=== PATIENT | female | born 1955 | race African-American/Black ===

== ENCOUNTER 2016-07-04 23:25 | Inpatient (IN) | payer MEDICAID ==
[~2016-07-04] VITALS: Ht 167.6 cm; Wt 102.1 kg
[~2016-07-04 23:25] MED LIST: ASPIRIN325 MG PO; CELEXA20 MG PO; COREG 3.1253.125 MG GT; FERROUS SULFAT325 MG PO; GLUCAGON1 MG/KIT IM; GLUCAGON1 MG/KIT SQ; HUMALOG 30100 UNITS/; HUMALOG 30100 UNITS/ SC; INSTA-GLUCOSE31 GM; LANTUS INSULIN10 ML; LANTUS SOL100 UNIT/1 SC; LANTUS SOL100 UNIT/1 SQ; LEVAQUIN750 MG PO; LIPITOR10 MG PO; LISINOPRIL10 MG PO; LISINOPRIL5 MG PO; PERCOCET 10/3251 TA1 OR; SEROQUEL XR200 MG PO; SOMA250 MG; SOMA250 MG PO
[2016-07-05 00:25] LABS: HEMATOCRIT 29.6 % (36.0-48.0); HEMOGLOBIN 9.3 g/dL (12-16); LYMPHOCYTES 40.5 % (15-50); MCH 22.9 pg (26.0-34.0); MCHC 31.4 g/dL (31.0-37.0); MCV 72.9 fL (80.0-100.0); MEAN PLATELET VOLUME 10.4 fL (7.4-10.4); NEUTROPHILS 50.6 % (40-80); PLATELET COUNT 134 10x3/uL (130-400); RBC 4.06 10x6/uL (4.00-5.40); RDW 20.2 % (11.5-14.5)
[2016-07-05 00:40] LABS: ALBUMIN 2.9 g/dL (3.4-5.0); ANION GAP 11.3 mmol/L (8-16); BILIRUBIN - TOTAL 0.39 mg/dL (0.2-1.3); CALCIUM 8.8 mg/dL (8.5-10.1); CARBON DIOXIDE 29.8 mmol/L (21.0-32.0); CREATININE - SERUM 1.5 mg/dL (0.6-1.3); POTASSIUM - SERUM 4.1 mmol/L (3.5-5.1); PROTEIN - SERUM 7.4 g/dL (6.4-8.2)
--- NOTE | 2016-07-05 03:30 | NUR ---
RECIEVED PT FROM ER VIA STRETCHER, ASSESSMENT COMPLETED, BRIEF SATURATED WITH URINE, FECES (NEW AND DRIED) PRESENT, HARDENED PIECE OF MEPILEX ROLLED UP ON COCCYX, STG 2 PRESSURE ULCER TO COCCYC APPROXIMATE 1/2 DOLLAR SIZE WITH MACERATION AROUND IT, UNSTAGEABLE ULCER TO R HEEL WITH ESCHAR, ALL AREAS CLEANSED AND CLEAN GOWN APPLIED, FELICIA WELL, ORIENTED TO ROOM AND CL LIGHT, SR'S UP X2, CL IN REACH, WILL MONITOR
[2016-07-05] MEDS ORDERED: LANTUS INSULIN10 ML SC (04:57)
[2016-07-05] MEDS ORDERED: ARGININE1 GM PO (04:58)
[2016-07-05] MEDS ORDERED: ASCORBIC ACID500 MG PO (04:58)
[2016-07-05] MEDS ORDERED: SEROQUEL100 MG PO (04:59)
[2016-07-05] MEDS ORDERED: THEREMS-M1 TAB PO (04:59)
[2016-07-05] MEDS ORDERED: GLUCOPHAGE500 MG PO (05:00)
[2016-07-05] MEDS ORDERED: LIPITOR10 MG PO (05:00)
[2016-07-05] MEDS ORDERED: ACETAMINOPHEN325 MG PO (05:02)
[2016-07-05] MEDS ORDERED: NEURONTIN 300300 MG PO (05:04)
[2016-07-05] MEDS ORDERED: VITAMIN D5000 UNIT PO (05:04)
[2016-07-05 05:12] VITALS: BP 134/65; BMI 36.4
[2016-07-05 08:02] VITALS: BP 163/69
[2016-07-05] MEDS ORDERED: HUMULIN R100 U/ML (08:18)
[2016-07-05] MEDS ORDERED: HUMULIN R100 U/ML SC ×2 (08:24→08:40)
--- NOTE | 2016-07-05 08:54 | NUR ---
AWAKE AND ALERT. ORIENTED X3. NO C/O AT THIS TIME. LUNGS HAVE FAINT CRACKLES THROUGOUT LUNG MCBRIDE, PRODUCTIVE COUGH NOTED. SKIN IS INTACT EXCEPT WOUND TO RIGHT HEEL WHICH IS SCABBED OVER AND STAGE 2 TO BUTTOCKS WHICH HAS A DRY INTACT MEPELEX IN PLACE. IV TO LEFT FOREARM IS PATENT WITHOUT REDNESS AT INSERTION SITE. ATE BREAKFAST PER SELF. DENIES NEEDS.
--- NOTE | 2016-07-05 09:15 | NUR ---
REFUSED BP MEDS THIS AM BUT CHANGED HER MIND AND TOOK THEM.
--- NOTE | 2016-07-05 12:15 | NUR ---
LUNCH SERVED IN ROOM. FEEDS SELF WITH SET UP ASSISTANCE.
[2016-07-05 12:22] VITALS: BP 165/71
[2016-07-05 13:11] VITALS: Ht 167.6 cm; Wt 102.1 kg
[2016-07-05 16:14] VITALS: BP 185/75
--- NOTE | 2016-07-05 17:00 | NUR ---
FSBS 450. DR QUIROGA NOTIFIED OF SAME. NEW ORDERS RECEIVED. GIVEN 28 UNITS HUMALOG SUBQ PER ORDERS. SUPPER SERVED IN ROOM.
--- NOTE | 2016-07-05 18:00 | NUR ---
ATE ALL OF SUPPER. GIVEN 10 UNITS OF LANTUS SUBQ PER ORDERS. WILL CONTINUE TO MONITOR.
[2016-07-05 20:00] VITALS: BP 163/62
--- NOTE | 2016-07-05 20:11 | NUR ---
BROUGHT PATIENT WATER PER HER REQUEST. PATIENT RESTING IN BED AND DENIES OTHER NEEDS AT THIS TIME. CALL LIGHT WITHIN REACH AND BED IN LOWEST POSITION.
[2016-07-06 03:00] VITALS: BP 162/68
[2016-07-06 05:46] LABS: BASOPHILS 0.3 % (0.0-2.0); EOSINOPHILS 3.5 % (0-7); HEMATOCRIT 30.9 % (36.0-48.0); HEMOGLOBIN 9.6 g/dL (12-16); IMMATURE GRANULOCYTES 0.3 % (0-5); LYMPHOCYTES 34.8 % (15-50); MCH 22.5 pg (26.0-34.0); MCHC 31.1 g/dL (31.0-37.0); MCV 72.4 fL (80.0-100.0); MEAN PLATELET VOLUME 10.8 fL (7.4-10.4); NEUTROPHILS 53.1 % (40-80); PLATELET COUNT 146 10x3/uL (130-400); RBC 4.27 10x6/uL (4.00-5.40); RDW 19.7 % (11.5-14.5); WBC 6.9 10x3/uL (4.8-10.8)
[2016-07-06 06:03] LABS: ALBUMIN 3.1 g/dL (3.4-5.0); ANION GAP 11.3 mmol/L (8-16); BILIRUBIN - TOTAL 0.42 mg/dL (0.2-1.3); CALCIUM 9.3 mg/dL (8.5-10.1); CARBON DIOXIDE 31.4 mmol/L (21.0-32.0); CREATININE - SERUM 1.6 mg/dL (0.6-1.3); POTASSIUM - SERUM 3.7 mmol/L (3.5-5.1); PROTEIN - SERUM 7.8 g/dL (6.4-8.2)
--- NOTE | 2016-07-06 07:45 | NUR ---
AWAKE AND ALERT. ORIENTED TO SELF. RESPONDS TO YES/NO QUESTIONS. PATIENT IS NON VERBAL SO DIFFICULT TO ASSESS ORIENTATION. LUNGS ARE CLEAR BIALTERALLY, OCCASSIONALLY PRODUCTIVE COUGH NOTED WITH GRAYISH SPUTUM. SKIN IS INTACT WITHOUT REDNESS EXCEPT STAGE 2 TO COCCYX AND BLACKENED AREA TO RIGHT HEEL, THE SCABBED AREA APPEARS TO HAVE COME OFF IN THE PM. SL TO LEFT HAND IS PATENT WITHOUT REDNESS AT INSERTION SITE. DENIES NEEDS.
[2016-07-06 07:51] VITALS: BP 148/60
[2016-07-06 12:26] VITALS: BP 169/75
[2016-07-06 16:09] VITALS: BP 173/68
--- NOTE | 2016-07-06 16:41 | NUR ---
Patient Name: MEGAN NAIK Admission Status: ER Accout number: [id number] Admission Date: 07-05-2016 : 1955 Admission Diagnosis:HEART FAILURE, UNSPECIFIED Attending: ISAURA Current LOS: 1 Anticipated DC Date: 07-07-2016 Planned Disposition: Nursing Facility [facility] Primary Insurance: MEDICAID [place] Discharge Planning Comments: CM CALLED [facility] FOR INFORMATION REGARDING PATIENT. PATIENT IS TOTALLY DEPENDENT AND USUALLY IS IN A DEVAN CHAIR. PATIENTS PCP IS DR. BUCK AMADOR AND IN HOUSE PHARMACY AT [facility]. PATIENT COULD POSSIBLY DISCHARGE TOMORROW. CM WILL CONTINUE TO FOLLOW PATIENT WITH D/C NEEDS AND PLANS. PCP DR. BUCK AMADOR IN HOUSE AT [facility] ISELA SANCHEZ (DAUGHTER) [phone] Eyeglass Lens Generator: [facility] IN HOUSE 0 * Preadmission Environment [facility] Nursery Assistant Custodial 0 * Facility Name [facility] 0 * ADLs Total Dependent 0 * Equipment Other 0 * Other Equipment DEVAN CHAIR 0 * List name and contact numbers for known caregivers / representatives who currently or will assist patient after discharge: ISELA SANCHEZ (DAUGHTER) [phone] 0 * Community resources currently utilized None 0 * Additional services required to return to the preadmission environment? Yes 0 * Can the patient safely return to the preadmission environment? Yes 0 * Has this patient been hospitalized within the prior 30 days at any hospital? No 0 Grand Total: 0
--- NOTE | 2016-07-06 17:18 | NUR ---
FSBS 516. SPOKE WITH DR. QUIROGA. ORDERS RECEIVED. GIVEN 38 UNITS REGULAR SUB Q PER ORDERS.
--- NOTE | 2016-07-06 18:32 | NUR ---
ATE MOST OF SUPPER. DENIES NEEDS. NO CHANGES NOTED.
[2016-07-06 19:00] VITALS: BP 142/45
--- NOTE | 2016-07-06 19:30 | NUR ---
LYING IN BED RESTING WITH EYES CLOSED, RESP WITH EASE, NC IN PLACE, ASSESSMENT COMPLETED, MEPILEX TO COCCYX CDI, NO DISTRESS NOTED, FALL PRECAUTIONS IN PLACE, CL IN REACH, DOOR OPEN FOR EASY VIEWING
--- NOTE | 2016-07-06 21:12 | NUR ---
MEDS PER MAR, FELICIA WELL, FALL PRECAUTIONS IN PLACE, CL IN REACH
--- NOTE | 2016-07-06 23:40 | NUR ---
RESTING WITH EYES CLOSED, RESP WITH EASE, NO DISTRESS NOTED, SAFETY PRECAUTIONS IN PLACE, WILL MONITOR
[2016-07-07 04:00] VITALS: BP 147/65
[2016-07-07 05:48] LABS: BASOPHILS 0.5 % (0.0-2.0); HEMATOCRIT 31.4 % (36.0-48.0); HEMOGLOBIN 9.9 g/dL (12-16); IMMATURE GRANULOCYTES 0.2 % (0-5); LYMPHOCYTES 34.7 % (15-50); MCH 22.8 pg (26.0-34.0); MCHC 31.5 g/dL (31.0-37.0); MCV 72.4 fL (80.0-100.0); MEAN PLATELET VOLUME 11.3 fL (7.4-10.4); MONOCYTES 7.6 % (2-11); PLATELET COUNT 161 10x3/uL (130-400); RBC 4.34 10x6/uL (4.00-5.40); RDW 19.2 % (11.5-14.5); WBC 6.4 10x3/uL (4.8-10.8)
[2016-07-07 06:14] LABS: ANION GAP 10.7 mmol/L (8-16); BILIRUBIN - TOTAL 0.4 mg/dL (0.2-1.3); CALCIUM 9.2 mg/dL (8.5-10.1); CREATININE - SERUM 1.6 mg/dL (0.6-1.3); POTASSIUM - SERUM 3.7 mmol/L (3.5-5.1); PROTEIN - SERUM 7.8 g/dL (6.4-8.2)
--- NOTE | 2016-07-07 07:00 | NUR ---
REPORT RECIEVED ASSUMED CARE. PATIENT IN BED WITH NO COMPLAINTS AT THIS TIME. IV INTACT. CALL LIGHT WITHIN REACH.
[2016-07-07 08:12] VITALS: BP 158/64
[2016-07-07] MEDS ORDERED: OMNICEF300 MG PO (08:28)
--- NOTE | 2016-07-07 08:30 | NUR ---
ASSESSMENT COMPLETE, VS STABLE. IV INTACT. NO COMPLAINTS. BSCDS ON AND WORKING. CREAM TO BUTTOCKS AND HEEL. HEELS RAISED ON PILLOW. LAYING ON SIDE WITH CALL LIGHT WITHIN REACH.
--- NOTE | 2016-07-07 12:00 | NUR ---
PATIENT SITTING UP IN BED EATING AT THIS TIME. IV INTACT. SCHOOL LIBRARY MEDIA PROGRAM DIRECTOR AT BEDSIDE. CALL LIGHT WITHIN REACH.
--- NOTE | 2016-07-07 15:30 | NUR ---
PATIENT IN BED LAYING ON BACK WITH NO COMPLAINTS AT THIS TIME. IV INTACT. CALL LIGHT WITHIN REACH.
--- NOTE | 2016-07-07 16:00 | NUR ---
REPORT CALLED TO VASHTI AT [facility].
--- NOTE | 2016-07-07 17:00 | NUR ---
PATIENT CHANGED AND DISCHARGE PAPERS GIVEN TO EMT. PATIENT ASSISTED TO STRECHER X 3. IV REMOVED WITH CATH TIP INTACT. PATIENT ESCORTED DOWN TO AMBULANCE WITH PERSONAL BELONGINGS BY GLASS MECHANIC.
--- NOTE | 2016-07-07 20:34 | NUR ---
Late Entry 1000 CM spoke w/ primary nurse after receiving TC from director community health nursing regarding discharge back to facility. CM advised primary to call and give [facility] to give report and give notice regarding transportation. CM came to unit 1040. Called [facility] and spoke with Bernarda. Advised patient would be returning. Provided primary nurse, Nhung, contact phone number and nurse's name, Bernarda, to call report. CM provided PCS form for ambulance transportation. 1500 Received TC from primary nurse, Nhung. "What about this patient is she going back today or what". Reminded Nhung, she had the phone number and nurse contact from this AM. PCS form was also with her work sheet and the information. Patient discharged via ambulance this late pm.
[2016-07-08] MEDS ORDERED: INSTA-GLUCOSE31 G1 PO (09:56)
== END 2016-07-07 18:11 | DRG 292 ==
LOC: D.ER 23:25 → D.MS 07-05 00:48
PROVIDERS: Emergency Medicine; ADMIT Family Medicine
DX: I11.0 Hypertensive heart disease with heart failure (principal); J44.1 Chronic obstructive pulmonary disease with (acute) exacerbation; I50.9 Heart failure, unspecified; J20.9 Acute bronchitis, unspecified; D64.9 Anemia, unspecified; E11.65 Type 2 diabetes mellitus with hyperglycemia; E11.40 Type 2 diabetes mellitus with diabetic neuropathy, unspecified; L89.152 Pressure ulcer of sacral region, stage 2; I69.320 Aphasia following cerebral infarction; Z79.4 Long term (current) use of insulin

== ENCOUNTER 2016-08-14 16:31 | Emergency (ER) | payer MEDICAID ==
[2016-07-05 13:11] VITALS: BMI 36.3
[~2016-08-14 16:31] MED LIST changes: +ACETAMINOPHEN325 MG PO; +ARGININE1 GM PO; +ASCORBIC ACID500 MG PO; +GLUCOPHAGE500 MG PO; +HUMULIN R100 U/ML; +HUMULIN R100 U/ML SC; +INSTA-GLUCOSE31 G1 PO; +LANTUS INSULIN10 ML SC; +NEURONTIN 300300 MG PO; +OMNICEF300 MG PO; +SEROQUEL100 MG PO; +THEREMS-M1 TAB PO; +VITAMIN D5000 UNIT PO
[2016-08-14 18:32] LABS: BASOPHILS 0.3 % (0.0-2.0); HEMATOCRIT 32.9 % (36.0-48.0); HEMOGLOBIN 10.3 g/dL (12-16); IMMATURE GRANULOCYTES 0.1 % (0-5); LYMPHOCYTES 38.6 % (15-50); MCH 22.7 pg (26.0-34.0); MCHC 31.3 g/dL (31.0-37.0); MCV 72.6 fL (80.0-100.0); MEAN PLATELET VOLUME 10.6 fL (7.4-10.4); MONOCYTES 6.9 % (2-11); NEUTROPHILS 51.1 % (40-80); PLATELET COUNT 154 10x3/uL (130-400); RBC 4.53 10x6/uL (4.00-5.40); RDW 19.3 % (11.5-14.5); WBC 6.9 10x3/uL (4.8-10.8)
[2016-08-14 19:38] LABS: ALBUMIN 3.3 g/dL (3.4-5.0); ANION GAP 12.6 mmol/L (8-16); BILIRUBIN - TOTAL 0.41 mg/dL (0.2-1.3); CALCIUM 9.3 mg/dL (8.5-10.1); CARBON DIOXIDE 28.3 mmol/L (21.0-32.0); CREATININE - SERUM 1.1 mg/dL (0.6-1.3); POTASSIUM - SERUM 3.9 mmol/L (3.5-5.1); PROTEIN - SERUM 7.6 g/dL (6.4-8.2)
== END 2016-08-14 20:27 | disposition home or self-care (01) ==
LOC: D.ER 16:31
PROVIDERS: Emergency Medicine
DX: R22.42 Localized swelling, mass and lump, left lower limb (principal); I10 Essential (primary) hypertension; E78.5 Hyperlipidemia, unspecified; E11.9 Type 2 diabetes mellitus without complications; Z79.4 Long term (current) use of insulin; Z86.73 Personal history of transient ischemic attack (TIA), and cerebral infarction without residual deficits

== ENCOUNTER 2016-09-21 18:41 | Inpatient (IN) | payer MEDICAID ==
[~2016-09-21] VITALS: Ht 167.6 cm; Wt 104.1 kg
[~2016-09-21 18:41] MED LIST changes: +COREG 3.1253.125 MG PO; -HUMULIN R100 U/ML; -HUMULIN R100 U/ML SC; -LANTUS INSULIN10 ML SC
[2016-09-21 19:19] LABS: HEMOGLOBIN 10.4 g/dL (12-16); MCHC 31.5 g/dL (31.0-37.0); MEAN PLATELET VOLUME 10.8 fL (7.4-10.4); RBC 4.52 10x6/uL (4.00-5.40); RDW 18.6 % (11.5-14.5); WBC 8.3 10x3/uL (4.8-10.8)
[2016-09-21 19:31] LABS: PLATELET COUNT 189 10x3/uL (130-400)
[2016-09-21 19:34] LABS: ALBUMIN 2.9 g/dL (3.4-5.0); ALKALINE PHOSPHATASE 137 U/L (46-116); ALT (SGPT) 68 U/L (10-68); CALC OSMOLALITY 286 mosm/kg (275-300); CALCIUM 9.6 mg/dL (8.5-10.1); CARBON DIOXIDE 29.3 mmol/L (21.0-32.0); CHLORIDE - SERUM 104 mmol/L (98-107); CREATININE - SERUM 1.6 mg/dL (0.6-1.3); POTASSIUM - SERUM 3.6 mmol/L (3.5-5.1); PROTEIN - SERUM 7.4 g/dL (6.4-8.2); SODIUM 140 mmol/L (136-145); UREA NITROGEN 21 mg/dL (7-18); eGFR NON AFRICAN AMERICAN 35 mL/min (90-120)
[2016-09-21 19:37] LABS: GLUCOSE 189 mg/dL (74-106)
[2016-09-21 19:43] LABS: THYROID STIMULATING HORMONE 2.87 uIU/mL (0.36-3.74)
[2016-09-21 19:47] LABS: KETONE - SERUM NEGATIVE (NEGATIVE)
[2016-09-21 19:55] LABS: EOSINOPHILS 2 % (0-7); LYMPHOCYTES 51 % (15-50); MONOCYTES 6 % (2-11); NEUTROPHILS 41 % (40-80); PLATELET ESTIMATE NORMAL
[2016-09-21 20:33] LABS: UDS - AMPHET NEGATIVE QUAL (NEGATIVE); UDS - BARB NEGATIVE QUAL (NEGATIVE); UDS - BENZO NEGATIVE QUAL (NEGATIVE); UDS - COCAINE NEGATIVE QUAL (NEGATIVE); UDS - METH NEGATIVE QUAL (NEGATIVE); UDS - OPIATE NEGATIVE QUAL (NEGATIVE); UDS - PCP NEGATIVE QUAL (NEGATIVE); UDS - THC NEGATIVE QUAL (NEGATIVE)
[2016-09-21 20:44] LABS: APPEARANCE CLEAR (CLEAR); BILIRUBIN NEGATIVE (NEGATIVE); COLOR YELLOW (YELLOW); GLUCOSE 100 mg/dL (NEGATIVE); KETONE NEGATIVE (NEGATIVE); LEUKOCYTE ESTERASE 1+ (NEGATIVE); NITRITE NEGATIVE (NEGATIVE); PROTEIN 1+ mg/dL (NEGATIVE); SPECIFIC GRAVITY 1.015 (1.005-1.020); UROBILINOGEN NORMAL (NORMAL)
[2016-09-21 20:45] LABS: BACTERIA MODERATE /hpf (NONE SEEN); EPITHELIAL CELLS 0-5 /hpf (0-5); RED CELLS - URINE 0-5 /hpf (0-5); WHITE CELLS - URINE >50 /hpf (0-5)
[2016-09-21 22:58] VITALS: BP 135/58; BMI 36.4
[2016-09-22 04:38] LABS: BASOPHILS 0.2 % (0-2); EOSINOPHILS 2.2 % (0-7); HEMATOCRIT 32.7 % (36.0-48.0); IMMATURE GRANULOCYTES 0.5 % (0-5); LYMPHOCYTES 40.5 % (15-50); MCH 22.5 pg (26.0-34.0); MCHC 30.6 g/dL (31.0-37.0); MCV 73.6 fL (80.0-100.0); MEAN PLATELET VOLUME 10.5 fL (7.4-10.4); MONOCYTES 7.2 % (2-11); NEUTROPHILS 49.4 % (40-80); PLATELET COUNT 163 10x3/uL (130-400); RBC 4.44 10x6/uL (4.00-5.40); RDW 18.5 % (11.5-14.5); WBC 8.3 10x3/uL (4.8-10.8)
[2016-09-22 05:00] LABS: ANION GAP 7.5 mmol/L (8-16); CALCIUM 9.1 mg/dL (8.5-10.1); CARBON DIOXIDE 31.2 mmol/L (21.0-32.0); CREATININE - SERUM 1.7 mg/dL (0.6-1.3); POTASSIUM - SERUM 3.7 mmol/L (3.5-5.1)
[2016-09-22 06:06] VITALS: BP 124/70
[2016-09-22 08:00] VITALS: BP 139/64
[2016-09-22 10:51] VITALS: Ht 167.6 cm; Wt 104.1 kg
[2016-09-22 12:00] VITALS: BP 157/67
[2016-09-22 16:00] VITALS: BP 149/68
[2016-09-22 19:00] VITALS: BP 144/56
[2016-09-23] VITALS: BP 187/74
[2016-09-23 04:23] VITALS: BP 196/74
[2016-09-23 05:38] LABS: BASOPHILS 0.3 % (0-2); EOSINOPHILS 2.7 % (0-7); HEMATOCRIT 30.3 % (36.0-48.0); HEMOGLOBIN 9.4 g/dL (12-16); LYMPHOCYTES 36.3 % (15-50); MCH 23.1 pg (26.0-34.0); MCV 74.4 fL (80.0-100.0); MEAN PLATELET VOLUME 10.1 fL (7.4-10.4); MONOCYTES 7.3 % (2-11); NEUTROPHILS 53.4 % (40-80); PLATELET COUNT 133 10x3/uL (130-400); RBC 4.07 10x6/uL (4.00-5.40); RDW 18.6 % (11.5-14.5)
[2016-09-23 06:00] LABS: ANION GAP 8.9 mmol/L (8-16); CALCIUM 8.4 mg/dL (8.5-10.1); CARBON DIOXIDE 28.1 mmol/L (21.0-32.0); CREATININE - SERUM 1.3 mg/dL (0.6-1.3)
[2016-09-23 08:00] VITALS: BP 160/73
--- NOTE | 2016-09-23 08:25 | HP ---
PATIENT: MEGAN NAIK MEDICAL RECORD: [id number] ACCOUNT: [id number] LOCATION:[address] : [birth year] ADMISSION DATE: 09/21/16 HISTORY AND PHYSICAL EXAMINATION DATE OF ADMISSION: 09/21/2016 CHIEF COMPLAINT: Unresponsiveness. HISTORY OF PRESENT ILLNESS: The patient is a 61-year-old -Cambod[place] female who apparently resides at a local longterm. She was found by staff to be somewhat unresponsive. EMS was phoned. The patient presented to the Emergency Room with altered mental status. In the Emergency Room, she was evaluated by Dr. Villegas, found to have a urinary tract infection, it was felt the patient warranted admission. PAST MEDICAL HISTORY: Significant that she has had history of previous CVA. She has had hypertension. She has had congestive heart failure and diabetes. She has had dependent edema. She has had expressive aphasia and right hemiplegia. FAMILY HISTORY: Unobtainable. No family member here. ALLERGIES: PENICILLIN. HABITS: None. MEDICATIONS: Include aspirin 325 mg once a day, Celexa 20 mg once a day, iron 325 p.o. q.a.m., vitamin D3 of 50,000 international units every week, Coreg 3.125 b.i.d., Lipitor 10 mg 1 p.o. daily, Seroquel 200 mg 1 at bedtime, Neurontin 300 mg p.o. t.i.d. and Tylenol 325 two p.o. q.4 hours p.r.n. pain. REVIEW OF SYSTEMS: Cannot be obtained. PHYSICAL EXAMINATION: GENERAL: In the Emergency Room, the patient was somewhat sedated. EYES: Pupils are equal, round, reactive to light. Extraocular movements are intact. She had no facial weakness. She did appear alert, but was aphasic. NECK: Supple. There is no adenopathy. HEART: Had a regular rate and rhythm without murmurs, gallops, or rubs. LUNGS: Clear. EXTREMITIES: The patient has no movement of the right upper extremity and right lower extremity. The patient had a cranial CT scan. The cranial CT scan showed no acute intracranial abnormalities, a large area of encephalomalacia noted encompassing the majority of the left cerebral hemisphere, likely secondary to prior ischemic CVA. Her chest x-ray reveals stable borderline cardiomegaly, hypoinflated lung krause with no focal areas of consolidation or pleural effusion. LABORATORY DATA: She had a white count of 8.3, hemoglobin was 10.4, hematocrit 33 and platelets were 189. BUN was 22, creatinine 1.7 and glucose of 162. Lactate was 2.1. Urinalysis showed greater than 50 wbc's per high power field, moderate bacteria. HISTORY AND PHYSICAL [id number] GUMAROGONZALEZ ASSESSMENT: Altered mental status secondary to urinary tract infection, history of schizophrenia, diabetes mellitus, prior left cerebrovascular accident with right hemiplegia. PLAN: The patient is admitted. Blood culture and urine cultures will be obtained. Also, she will be placed on Merrem 1 g q.12 hours. We will await blood and urine cultures. TRANSINT:[id number] Voice Confirmation ID: [id number] DOCUMENT ID: [id number] RAMON BUSTILLOS MD at 0825 CC: [id number] DICTATION DATE: 09/22/16 0941 NARROW GAUGE ENGINEER: 09/22/16 1132 ADM IN [place] [id number] [place] [id number]
[2016-09-23 12:00] VITALS: BP 176/72
[2016-09-23 20:23] VITALS: BP 156/60
[2016-09-23 23:59] VITALS: BP 167/63
[2016-09-24 04:46] VITALS: BP 184/73
[2016-09-24 07:21] LABS: BASOPHILS 0.3 % (0-2); EOSINOPHILS 2.2 % (0-7); HEMATOCRIT 31.1 % (36.0-48.0); HEMOGLOBIN 9.6 g/dL (12-16); LYMPHOCYTES 38.9 % (15-50); MCHC 30.9 g/dL (31.0-37.0); MCV 74.4 fL (80.0-100.0); MEAN PLATELET VOLUME 10.7 fL (7.4-10.4); MONOCYTES 5.8 % (2-11); NEUTROPHILS 52.8 % (40-80); PLATELET COUNT 141 10x3/uL (130-400); RBC 4.18 10x6/uL (4.00-5.40); RDW 18.3 % (11.5-14.5); WBC 5.9 10x3/uL (4.8-10.8)
[2016-09-24 07:42] LABS: ALBUMIN 2.7 g/dL (3.4-5.0); ANION GAP 8.4 mmol/L (8-16); BILIRUBIN - TOTAL 0.33 mg/dL (0.2-1.3); CALCIUM 8.4 mg/dL (8.5-10.1); CARBON DIOXIDE 28.7 mmol/L (21.0-32.0); CREATININE - SERUM 1.2 mg/dL (0.6-1.3); POTASSIUM - SERUM 4.1 mmol/L (3.5-5.1); PROTEIN - SERUM 7.1 g/dL (6.4-8.2)
[2016-09-24 08:36] VITALS: BP 165/69
[2016-09-24 11:38] VITALS: BP 186/69
[2016-09-24] MEDS ORDERED: LANTUS INSULIN10 ML SC (14:28)
[2016-09-24] MEDS ORDERED: HUMULIN R100 U/ML SC ×2 (14:29→14:30)
[2016-09-24] MEDS ORDERED: HUMULIN R100 U/ML (14:39)
[2016-09-24 15:43] VITALS: BP 141/72
[2016-09-24 20:00] VITALS: BP 147/61
[2016-09-25 00:59] VITALS: BP 171/63
[2016-09-25 04:16] VITALS: BP 168/63
[2016-09-25 05:17] LABS: BASOPHILS 0.2 % (0-2); EOSINOPHILS 2.6 % (0-7); HEMATOCRIT 29.7 % (36.0-48.0); HEMOGLOBIN 9.2 g/dL (12-16); IMMATURE GRANULOCYTES 0.2 % (0-5); LYMPHOCYTES 35.4 % (15-50); MCH 22.9 pg (26.0-34.0); MCV 73.9 fL (80.0-100.0); MEAN PLATELET VOLUME 10.5 fL (7.4-10.4); MONOCYTES 7.5 % (2-11); NEUTROPHILS 54.1 % (40-80); PLATELET COUNT 131 10x3/uL (130-400); RBC 4.02 10x6/uL (4.00-5.40); RDW 18.4 % (11.5-14.5); WBC 5.9 10x3/uL (4.8-10.8)
[2016-09-25 05:44] LABS: ANION GAP 6.9 mmol/L (8-16); CALCIUM 8.5 mg/dL (8.5-10.1); CREATININE - SERUM 1.1 mg/dL (0.6-1.3); POTASSIUM - SERUM 3.9 mmol/L (3.5-5.1)
[2016-09-25] MEDS ORDERED: COREG6.25 MG PO (06:58)
[2016-09-25] MEDS ORDERED: ZESTRIL20 MG PO (06:58)
[2016-09-25] MEDS ORDERED: CEFUROXIME250 MG PO (06:59)
[2016-09-25 07:53] VITALS: BP 173/70
[2016-09-25 11:38] VITALS: BP 179/65
--- NOTE | 2016-09-26 07:13 | DS ---
PATIENT:MEGAN NAIK :[birth year] MEDICAL RECORD: [id number] DISCHARGE SUMMARY ADMISSION DATE: 09/21/16 DISCHARGE DATE: 09/25/16 DATE OF ADMISSION: 09/21/2016 DATE OF DISCHARGE: 09/25/2016 CONDITION ON DISCHARGE: Improved. ADMITTING DIAGNOSIS: Altered mental status. DISCHARGE DIAGNOSES: Altered mental status felt to be secondary to possible early pneumonia as well as urinary tract infection. The patient has history of having schizophrenia, diabetes mellitus, prior left cerebrovascular accident with right hemiplegia. HOSPITAL COURSE: The patient is a 61-year-old -Lebanese female, who presents from a local prison. She was found by staff to being unresponsive. EMS was phoned. The patient presented to the Emergency Room for evaluation of altered mental status. In the Emergency Room, the patient was evaluated by Dr. Villegas, felt the patient had significant urinary tract infection and that she should be admitted. Initially, the patient had a cranial CT scan. The cranial CT scan showed no acute intracranial abnormalities, large area of encephalomalacia was noted encompassing the majority of the left cerebral hemisphere, likely secondary to prior ischemic infarct. Initially, the patient's white count was 8.3, her hemoglobin was 10, hematocrit 32.7 and her platelets were 163. The patient's sodium was 140, potassium 3.9, chloride 108, CO2 was 29. Her BUN was 16, creatinine 1.1, blood sugar was elevated. The patient's urinalysis showed greater than 50 wbc's per high power field. She did have a urine culture. Urine culture showed mixed contaminated species on the . A Quinn catheter was discontinued. She also had a reculture of her urine. Chest x-ray on the showed a faint left lower lobe airspace disease, small pleural effusion suggestive of pneumonia. On the , the patient was afebrile. The patient had been aphasic since her admission. This was felt to be old. Her pulse was 71, respirations of 18, her blood pressure was slightly elevated at 168/83. O2 sat was 95% on one-half liter nasal cannula. Her HEENT was unremarkable. The patient did continue to have right hemiplegia. Her white count was 5.9, hemoglobin 9.2, hematocrit 29.7 and her platelets were 131. She had a sodium 143, potassium 3.9, chloride is 108, BUN of 16, creatinine of 1.1. The patient was transferred back to the prison. MEDICATIONS: Included lisinopril 20 mg b.i.d., Coreg 6.25 b.i.d. She was placed on 7 days of Ceftin 500 mg p.o. b.i.d. Continue Seroquel 200 mg q.h.s., Celexa 20 mg once a day, ferrous sulfate 325 one p.o. q. day, aspirin 325 once a day, Lantus 60 units subQ b.i.d., atorvastatin 10 mg p.o. q.h.s., gabapentin 300 mg t.i.d., Humulin R sliding scale. The patient was to follow up with her local PCP. DISCHARGE SUMMARY REPORT [id number] MEGAN NAIK DIET: 2200 calorie ADA diet. TRANSINT:[id number] Voice Confirmation ID: [id number] DOCUMENT ID: [id number] RAMON BUSTILLOS MD at 0713 CC: [id number] DICTATION DATE: 09/25/16 07 COIN BOX INSPECTOR: 09/26/16 0016 DIS IN 09/25/16 [facility] [address] [place] [address]
== END 2016-09-25 13:51 | DRG 689 ==
LOC: D.ER 18:41 → D.M2 21:02
PROVIDERS: Emergency Medicine; ADMIT Family Medicine
PROC: 0T9B70Z Drainage of Bladder with Drainage Device, Via Natural or Artificial Opening (ICD-10-PCS; principal; 2016-09-21)
DX: N39.0 Urinary tract infection, site not specified (principal); J18.9 Pneumonia, unspecified organism; I69.351 Hemiplegia and hemiparesis following cerebral infarction affecting right dominant side; R41.82 Altered mental status, unspecified; F20.9 Schizophrenia, unspecified; E11.9 Type 2 diabetes mellitus without complications; I50.9 Heart failure, unspecified

== ENCOUNTER 2017-04-19 22:46 | Inpatient (IN) | payer MEDICAID ==
[~2017-04-19] VITALS: Ht 167.6 cm; Wt 102.5 kg
[~2017-04-19 22:46] MED LIST changes: +CEFUROXIME250 MG PO; +COREG6.25 MG PO; +HUMULIN R100 U/ML; +HUMULIN R100 U/ML SC; +LANTUS INSULIN10 ML SC; +ZESTRIL20 MG PO
[2017-04-19 23:18] LABS: BASOPHILS 0.1 % (0-2); EOSINOPHILS 1.6 % (0-7); HEMATOCRIT 29.7 % (36.0-48.0); HEMOGLOBIN 9.5 g/dL (12-16); IMMATURE GRANULOCYTES 0.7 % (0-5); LYMPHOCYTES 15.4 % (15-50); MCH 23.5 pg (26.0-34.0); MCV 73.3 fL (80.0-100.0); NEUTROPHILS 75.2 % (40-80); RBC 4.05 10x6/uL (4.00-5.40); WBC 6.8 10x3/uL (4.8-10.8)
[2017-04-19 23:20] LABS: PLATELET COUNT 100 10x3/uL (130-400)
[2017-04-19 23:26] LABS: ALBUMIN 2.7 g/dL (3.4-5.0); ANION GAP 12.7 mmol/L (8-16); BILIRUBIN - TOTAL 0.36 mg/dL (0.2-1.3); CALCIUM 8.4 mg/dL (8.5-10.1); CARBON DIOXIDE 25.4 mmol/L (21.0-32.0); CREATININE - SERUM 1.7 mg/dL (0.6-1.3); POTASSIUM - SERUM 4.1 mmol/L (3.5-5.1); PROTEIN - SERUM 7.2 g/dL (6.4-8.2)
[2017-04-19 23:42] LABS: MAGNESIUM - SERUM 1.9 mg/dL (1.8-2.4)
[2017-04-19 23:51] LABS: TROPONIN-I 0.695 ng/mL (0.000-0.060)
[2017-04-20 00:01] LABS: APPEARANCE CLEAR (CLEAR); BILIRUBIN NEGATIVE (NEGATIVE); COLOR YELLOW (YELLOW); GLUCOSE NEGATIVE (NEGATIVE); KETONE NEGATIVE (NEGATIVE); NITRITE NEGATIVE (NEGATIVE); PROTEIN 2+ mg/dL (NEGATIVE); RED CELLS - URINE 0-5 /hpf (0-5); SPECIFIC GRAVITY 1.015 (1.005-1.020); UROBILINOGEN NORMAL (NORMAL); WHITE CELLS - URINE NSEEN /hpf (0-5)
[2017-04-20] MEDS ORDERED: ARGININE1 GM PO (02:57)
[2017-04-20] MEDS ORDERED: HUMALOG 30100 UNITS/ SC ×3 (02:59→05:22)
[2017-04-20 03:56] VITALS: BP 200/67; BMI 36.5
[2017-04-20 04:00] VITALS: BP 200/67
--- NOTE | 2017-04-20 04:28 | NUR ---
PATIENT DID NOT TOLERATE PO APAP FOR FEVER 102.7 RECTAL. RECTAL APAP GIVE. IV HYDRALAZINE GIVE FOR ELEVATED BP, AND ROCEPHINE IV GIVEN FOR POSSIBLE INFECTION.
[2017-04-20] MEDS ORDERED: HUMULIN N100 U/ML SC (05:25)
[2017-04-20] MEDS ORDERED: MULTIPLE VITAMI1 TA1 PO (05:26)
[2017-04-20] MEDS ORDERED: NYSTATIN1 PWD (05:28)
[2017-04-20] MEDS ORDERED: CEFTRIAXONE1 G/VIAL IM (05:28)
[2017-04-20] MEDS ORDERED: ASCORBIC ACID500 MG PO (05:31)
--- NOTE | 2017-04-20 08:00 | NUR ---
ASSESSMENT PER FLOW SHEET.PT WITHOUT DISTRESS. SHE DOES NOT SPEAK AND IS VERY LETHARGIC.DROPLET ISOLATION.MONITOR FOR NEEDS
[2017-04-20 10:52] VITALS: BP 173/61
--- NOTE | 2017-04-20 12:00 | NUR ---
STILL VERY LETHARGIC.UNABLE TO TAKE MEDS AND FOOD. MONITOR
[2017-04-20 12:53] VITALS: BP 172/64
--- NOTE | 2017-04-20 16:30 | NUR ---
PT AWAKENS INT AND MOANS. REPOSITIONED AND CLEANED
[2017-04-20 20:00] VITALS: BP 138/60
--- NOTE | 2017-04-20 22:25 | NUR ---
LAB INFORMED PATIENT HAS GRAM+ COCCI IN THE AREOBIC BLOOD CULTURE
[2017-04-21] VITALS: BP 125/68
--- NOTE | 2017-04-21 02:20 | NUR ---
RN NOTE: PT RESTING QUIETLY IN LOW MINOR'S POSITION WITH UNLABORED BREATHING. IV IN LEFT THUMB PATENT WITH LR INFUSING AT 75 ML / HR. CISNEROS CATHETER DRAINING TO GRAVITY WITH YELLOW URINE IN COLLECTION BAG. WILL CONTINUE TO MONITOR FOR NEEDS.
[2017-04-21 04:00] VITALS: BP 188/81
--- NOTE | 2017-04-21 10:42 | NUR ---
REC'D SITTING UP IN BED RESTING. ALERT AND ORIENTED X2. WILL ONLY NOD HEAD TO QUESTIONS. TRIES TO COMMUNITCATE BUT ONLY MUMBLES. BP WAS ELEVATED THIS AM 177/94, GOT HER TO TAKE HER BP MEDS. COULD NOT TOLERATE THE REST. DENIED NEEDS AT THIS TIME. INSTRUCTED TO CALL IF NEEDED ANYTHING, NODDED HEAD YES. NO DISTRESS NOTED. WILL CONT TO MONITOR. BED LOW, LOCKED, CALL LIGHT IN REACH, ALARM ON.
[2017-04-21 11:04] VITALS: BP 177/94
[2017-04-21 13:32] VITALS: BP 154/67
[2017-04-21 20:00] VITALS: BP 174/68
--- NOTE | 2017-04-21 22:04 | NUR ---
ADMINISTERED TX TO PT. [id number]% [id number]% NASAL TRUMPET IN LEFT NOSTRIL APPEARS PATENT. BILATERAL BREATH SOUNDS CLEAR/DIM. LOOSE NON PRODUCTIVE COUGH PRESENT. RESPONDS TO VERBAL STIMULI. FELICIA TX WELL
--- NOTE | 2017-04-22 03:18 | NUR ---
DROPLET ISOLATION PRECAUTIONS OBERVED. PT SLEEPING. RESP EVEN, UNLABORED. OCCASIONAL COUGH. NO DISTRESS NOTED. CONTINUE GERIATRIC NURSE ASSISTANT'S PLAN OF CARE.
--- NOTE | 2017-04-22 03:32 | NUR ---
RECTAL TYLENOL GIVEN FOR 101.7 TEMP
[2017-04-22 04:00] VITALS: BP 155/66
--- NOTE | 2017-04-22 07:20 | NUR ---
REPORT RECEIVED FROM OXYHYDROGEN WELDER NURSE. CALL LIGHT IN REACH.
[2017-04-22 09:33] VITALS: BP 148/53
--- NOTE | 2017-04-22 09:49 | NUR ---
ASSESSMENT COMPLETED. WILL HOLD MEDS UNTIL SWALLOW STUDY IS COMPLETED. CALL LIGHT IN REACH. WILL CONTINUE WITH PLAN OF CARE.
--- NOTE | 2017-04-22 11:56 | NUR ---
BLOOD SUGAR IS 212. WILL HOLD INSULIN RIGHT NOW D/T NPO STATUS.
[2017-04-22 13:03] VITALS: BP 168/71
[2017-04-22 13:10] LABS: BASOPHILS 0.3 % (0-2); EOSINOPHILS 0.2 % (0-7); HEMATOCRIT 27.2 % (36.0-48.0); HEMOGLOBIN 8.6 g/dL (12-16); IMMATURE GRANULOCYTES 0.2 % (0-5); LYMPHOCYTES 33.9 % (15-50); MCH 24.1 pg (26.0-34.0); MCHC 31.6 g/dL (31.0-37.0); MCV 76.2 fL (80.0-100.0); MEAN PLATELET VOLUME 10.2 fL (7.4-10.4); MONOCYTES 11.4 % (2-11); PLATELET COUNT 119 10x3/uL (130-400); RBC 3.57 10x6/uL (4.00-5.40); RDW 19.9 % (11.5-14.5); WBC 6.3 10x3/uL (4.8-10.8)
--- NOTE | 2017-04-22 13:26 | NUR ---
PT HERE FOR RESP ACIDOSIS FOR THIS VISIT PT DENIES NEEDS AT THIS TIME WILL MONITOR
--- NOTE | 2017-04-22 13:30 | NUR ---
NO NEEDS VOICED AT THIS TIME. CALL LIGHT IN REACH.
[2017-04-22 13:41] LABS: ALBUMIN 2.7 g/dL (3.4-5.0); ANION GAP 11.2 mmol/L (8-16); BILIRUBIN - TOTAL 0.4 mg/dL (0.2-1.3); CALCIUM 8.6 mg/dL (8.5-10.1); CREATININE - SERUM 1.9 mg/dL (0.6-1.3); POTASSIUM - SERUM 4.2 mmol/L (3.5-5.1)
[2017-04-22 14:49] VITALS: BMI 36.4
--- NOTE | 2017-04-22 15:30 | NUR ---
NO NEEDS VOICED AT THIS TIME. CALL LIGHT IN REACH.
[2017-04-22 16:32] VITALS: BP 165/70
[2017-04-22 17:28] VITALS: Ht 167.6 cm; Wt 102.5 kg
--- NOTE | 2017-04-22 17:50 | NUR ---
FSBS 208. WILL NOT COVER D/T NPO STATUS.
--- NOTE | 2017-04-22 18:45 | NUR ---
NO CHANGES IN INITIAL ASSESSMENT. CALL LIGHT IN REACH. WILL CONTINUE WITH PLAN OF CARE.
[2017-04-22 20:00] VITALS: BP 178/84
--- NOTE | 2017-04-22 20:00 | NUR ---
ASSESSMENT PER FLOWSHEET. IV PATENT LEFT THUMB OF D51/2NS AT 100CC'S/HR. CISNEROS TO BEDSIDE DRAINAGE WITH SAM URINE. REMAINS NPO. O2 ON 4L/M PER NS. PT IN DROPLET ISOLATION.RT SIDE FLACCID AND NO SPEECH.
--- NOTE | 2017-04-22 20:22 | NUR ---
NUMBER FOR DAUGHTER IS ACTUALLY PATIENT'S ROOMMATE. SHE HAS NO MEDICAL POWER OF LABORATORY IMMUNOLOGIST SO THERE IS NO WAY TO GET CONSENT AT THIS TIME. GENERAL DISTILLERY WORKER TO TRY TO GET IT FROM PATIENT.
--- NOTE | 2017-04-22 21:00 | NUR ---
MEDS HELD DUE TO FAILED SWALLOW EVAL. EPZZ=548 20 UNITS REGULAR INSULIN GIVEN PER S/S.
--- NOTE | 2017-04-22 23:00 | NUR ---
IV FLUIDS CHANGED TO D51/2NS AT 100CC'S/HR ORDERED.
--- NOTE | 2017-04-23 02:00 | NUR ---
REPOSITIONED FOR COMFORT.
[2017-04-23 04:00] VITALS: BP 145/70
--- NOTE | 2017-04-23 04:30 | NUR ---
EYES CLOSED RESPIRATIONS WITH EASE AND UNLABORED. REMAINS NPO.
--- NOTE | 2017-04-23 06:00 | NUR ---
NO CHANGES IN ASSESSMENT.
[2017-04-23 06:38] LABS: BASOPHILS 0.3 % (0-2); EOSINOPHILS 0 % (0-7); HEMATOCRIT 27.3 % (36.0-48.0); HEMOGLOBIN 8.6 g/dL (12-16); IMMATURE GRANULOCYTES 0.3 % (0-5); LYMPHOCYTES 40.3 % (15-50); MCH 23.9 pg (26.0-34.0); MCHC 31.5 g/dL (31.0-37.0); MCV 75.8 fL (80.0-100.0); MONOCYTES 2.7 % (2-11); NEUTROPHILS 56.4 % (40-80); PLATELET COUNT 113 10x3/uL (130-400)
[2017-04-23 06:41] LABS: ANION GAP 13.6 mmol/L (8-16); CALCIUM 8.9 mg/dL (8.5-10.1); CARBON DIOXIDE 25.7 mmol/L (21.0-32.0); CREATININE - SERUM 1.7 mg/dL (0.6-1.3); POTASSIUM - SERUM 4.3 mmol/L (3.5-5.1)
[2017-04-23 06:52] LABS: WBC 3.8 10x3/uL (4.8-10.8)
[2017-04-23 09:00] VITALS: BP 181/70
--- NOTE | 2017-04-23 09:30 | NUR ---
PT IV MEDS ADMINISTERED. NO PO MEDS GIVEN DUE TO BEING NPO FROM FAILING A SWALLOW STUDY. PEG PLACEMENT CANCELLED DUE TO NOT BEING ABLE TO GIVE CONSENT AND NO FAMILY TO CONSULT. WCPOC.
--- NOTE | 2017-04-23 10:35 | NUR ---
PT UNABLE TO COMMUNICATE. PT CAN MAKE NOISE AND WILL SHAKE HER HEAD YES WHEN ASKED IF HER NAME IS MS NAIK. PT WILL JUST STARE BLANKLY AT YOU WHEN ASKED ANYTHING ELSE.
--- NOTE | 2017-04-23 11:43 | NUR ---
* PCP Dr. Olvera 0 * Preadmission Environment [facility] 0 * Facility Name [facility] 0 * ADLs Partial Dependent 0 * Partial ADLs (Assistance needed) Ambulation Bathing Dressing Medication Management Toileting 0 * List name and contact numbers for known caregivers / representatives who currently or will assist patient after discharge: Nursery Nurse - Elvira Stoner [phone] 0 * Additional services required to return to the preadmission environment? Yes 0 * Can the patient safely return to the preadmission environment? Yes Patient Name: MEGAN NAIK Admission Status: ER Accout number: [id number] Admission Date: 04-21-2017 : 1955 Admission Diagnosis: Attending: ROD IQBAL Current LOS: 2 Planned Disposition: Nursing Facility [facility] Primary Insurance: MEDICAID [place] Discharge Planning Comments: Order rec'd for [facility] referral. Patient is alert but unable to communicate. Call placed to Haley @ [facility]. 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 She reports patient is dependent with all ADL's but is able to feed herself with supervision. She reports patient was able to speak prior to hospitalization. She states she is confined to Prabha chair/. She states patient does not have a POA & was able to make her own health care decisions up until this hospitalization. She states they have a person they notify when she comes to the hospital - Elvira Stoner [phone]. Phone call placed to Elvira- demi states she is a very good friend. She states patient has a sister, but does not know her name. She states her nephew is Rashawn Brown and lives in the [facility]. She states she spoke with him right after her stroke in 2014 but has not heard from him since. She states she has tried to find a phone number for him but has not been successful. An internet search has not resulted in locating a phone number for this person. Referral will be faxed to [facility] per MD order. CM will follow. Residential Driver: Maria M Steel
[2017-04-23 12:25] VITALS: BP 180/74
--- NOTE | 2017-04-23 13:06 | NUR ---
NAE found contact number for patient's nephew Rashawn Brown ([phone]). Informed Mr. Brown that we are trying to reach the next of kin for patient. Mr Brown stated that the patient had several living sisters, one of which is his mother Kathy Brush. Mr. Brown stated he would have Ms. Brush call NAE Franz at [phone] today. Mr. Brown stated that if his mother did not contact NAE today, that hospital may reach him at the above stated phone number. Informed NAE Franz to expect call from patient's sister today.
--- NOTE | 2017-04-23 15:17 | NUR ---
Upon further investigation by Health Information Technologist, CAIT Nash located patients sister & nephew. Sister - Kathy Brush [phone] Nephew - Rashawn Brown [phone] or [phone] Spoke with Kathy & Rashawn via telephone. They confirm patient does not have any children and Kathy is next of kin. Updated them on patients condition, prognosis & POC. Discussed hospice options. Both are agreeable with transferring patient back to nursing facility with hospice. Notified [facility] of family contact information. Phone call to Shante Bronson [facility] - provided her with contact information as well. Anticipate dc this evening to residential care bed on [facility] with [facility] once legal paperwork can be completed.
--- NOTE | 2017-04-23 15:38 | NUR ---
PT RESTING IN BED, EYES CLOSED. RR ARE EVEN AND UNLABORED. WCTM.
[2017-04-23 16:15] VITALS: BP 175/72
--- NOTE | 2017-04-23 20:00 | NUR ---
ASSESSMENT PER FLOWSHEET. IV PATENT LEFT WRIST OF D51/2NS AT 100CC'S/HR SITE CLEAR. RT ARM/LEG FLACCID AND CONTRACTED ARM WITH SWELLING.CISNEROS TO BEDSIDE DRAINAGE WITH SAM URINE. NO SPEECH. WILL MAKE EYE CONTACT TO VERBAL RESPONSE.SR UP X2 CALL LIGHT WITHIN REACH BED ALARM ON.
[2017-04-23 20:49] VITALS: BP 196/84
--- NOTE | 2017-04-23 21:30 | NUR ---
MEDS GIVEN PER JUL ALL PO MEDS HELD PT UNABLE TO SWALLOW PO MEDS. IV ANTIBIOTICS GIVEN PRESCRIBED.
--- NOTE | 2017-04-23 21:45 | NUR ---
GIJX=508. REGULAR INSULIN 28 UNITS GIVEN PER S/S.
[2017-04-23 23:44] VITALS: BP 186/84
--- NOTE | 2017-04-24 | NUR ---
EYES CLOSED RESPIRATIONS WITH EASE AND UNLABORED.
--- NOTE | 2017-04-24 03:34 | NUR ---
EYES CLOSED RESPIRATIONS WITH EASE AND UNLABORED.
[2017-04-24 04:24] VITALS: BP 187/78
--- NOTE | 2017-04-24 06:00 | NUR ---
RESTING QUIETLY FSBS= [phone] 28 UNITS INSULIN GIVEN PER S/S. NO CHANGES IN ASSESSMENT.
[2017-04-24 06:12] LABS: BASOPHILS 0.2 % (0-2); EOSINOPHILS 0 % (0-7); HEMATOCRIT 28.5 % (36.0-48.0); IMMATURE GRANULOCYTES 0.4 % (0-5); LYMPHOCYTES 25.2 % (15-50); MCH 23.7 pg (26.0-34.0); MCHC 31.6 g/dL (31.0-37.0); MCV 75.2 fL (80.0-100.0); MONOCYTES 5.3 % (2-11); NEUTROPHILS 68.9 % (40-80); PLATELET COUNT 126 10x3/uL (130-400); RBC 3.79 10x6/uL (4.00-5.40); RDW 19.8 % (11.5-14.5)
[2017-04-24 06:28] LABS: WBC 5.5 10x3/uL (4.8-10.8)
[2017-04-24 06:42] LABS: ANION GAP 14.4 mmol/L (8-16); CALCIUM 8.7 mg/dL (8.5-10.1); CARBON DIOXIDE 27.2 mmol/L (21.0-32.0); CREATININE - SERUM 1.8 mg/dL (0.6-1.3); POTASSIUM - SERUM 4.6 mmol/L (3.5-5.1)
[2017-04-24 08:10] VITALS: BP 189/79
[2017-04-24] MEDS ORDERED: IPRAT-ALBUT 0.5-3 ML INH (10:37)
[2017-04-24] MEDS ORDERED: PULMICORT0.5 MG/21 UPD (10:39)
--- NOTE | 2017-04-24 13:26 | NUR ---
CM REASSESSMENT NOTE: PATIENT IS DISCHARGING BY AMBULANCE TO [facility] TO BE ADMITTED TO [facility]. FAMILY AWARE (OUT OF STATE) PER [facility]
--- NOTE | 2017-04-24 15:00 | NUR ---
L HAND/THUMB IV D/C'D AT THIT TIME, CATHETER INTACT, BLEED CONTROL. BANDAGE APPLIED.
--- NOTE | 2017-04-24 15:02 | NUR ---
REPORT CALLED TO MARGIE AT [facility]. DISCHARGE FAXED TO [phone].
--- NOTE | 2017-04-24 16:45 | NUR ---
ATTEMPTED X 6 TO FAX DISCHARGE INSTRUCTIONS TO [facility], HAVE NOT RECEIVED.
--- NOTE | 2017-04-24 18:17 | NUR ---
[facility] CALLED TO CONFIRM THEY RECEIVED DISCHARGE INSTRUCTIONS, [facility] CALLED FOR TRANSPORTATION.
--- NOTE | 2017-05-09 14:06 | CN ---
PATIENT NAME:MEGAN NAIK MEDICAL RECORD: [id number] : 59 LOCATION:[id number] ADMIT DATE: 04/21/17 ACCOUNT: [id number] CONSULTING PHYSICIAN: EMILY HOANG MD REFERRING PHYSICIAN: LAMONT IQBAL MD DATE OF CONSULTATION: 04/22/2017 CONSULTING PHYSICIAN: Lamont Iqbal MD REASON FOR CONSULTATION: Dysphagia, aspiration pneumonitis. HISTORY OF PRESENT ILLNESS: Ms. Naik is a 62-year-old female who is a snf resident after the CVA, she is aphasic, the history was taken mainly by talking to the nursing staff and reviewing the note. The patient was brought in with fever of 102. The patient has swallowing evaluation and she is aspirating liquid as well as semi-liquid food. REVIEW OF SYSTEMS: As in history of present illness. PAST MEDICAL HISTORY: 1. History of cerebrovascular accident. 2. Neuropathy. 3. Seizure disorder. 4. Diabetes mellitus type 2. 5. Hypertension. 6. Anxiety, depression. 7. Schizophrenia. PAST SURGICAL HISTORY: She has a hip surgery and she has a back surgery. ALLERGIES: SHE IS ALLERGIC TO PENICILLIN. MEDICATIONS: She is on ceftriaxone. Her other medication is reviewed. PERSONAL AND SOCIAL HISTORY: Detail is not obtainable. FAMILY HISTORY: Not obtainable. PHYSICAL EXAMINATION: GENERAL: Now, the patient is lying comfortably in bed. She is not in acute distress. VITAL SIGNS: The blood pressure is 165/70, pulse is 98, respirations 18, temperature 98.8, pulse ox is 94% on nasal cannula oxygen. HEENT: Conjunctivae pink, sclerae nonicteric. NECK: Supple, no JVD. CHEST: There are wheezes with expiration. HEART: Rhythm regular, normal sound, no murmur. ABDOMEN: Soft. Bowel sounds present. No hepatosplenomegaly. RECTAL: Deferred. EXTREMITIES: No cyanosis, no clubbing, no pedal edema. SKIN: Warm, normal turgor. CENTRAL NERVOUS SYSTEM: The patient is awake, but she is aphasic. There is no facial nerve abnormality. CHEST RADIOGRAPH: On admission, there were no infiltrate. CONSULT REPORT [id number] MEGAN NAIK OTHER LABORATORY DATA: CBC, the WBC is 6.3, hemoglobin is 8.6, hematocrit is 27.2, the platelet count is 119. Chemistry; sodium 150, potassium is 4.2, BUN is 42, creatinine 1.6. IMPRESSION: 1. Acute hypoxic respiratory failure. 2. Aspiration pneumonitis. 3. Asthmatic bronchitis. 4. Dysphagia. 5. Hypernatremia. 6. Acute renal failure, possible prerenal. 7. Status post cerebrovascular accident. 8. Wheezing. 9. Suspect obstructive sleep apnea. RECOMMENDATION: 1. Continue Rocephin and start on clindamycin IV. 2. Methylprednisolone IV. 3. Start on IV fluids. 4. Make her n.p.o. 5. Follow up labs and chest radiograph in the morning. Consult surgery. Already spoke with Dr. Torres for PEG tube placement. Dr. Iqbal, thank you for involving me in the care of Ms. Naik. TRANSINT:[id number] Voice Confirmation ID: [id number] DOCUMENT ID: [id number] EMILY HOANG MD at 1406 CC: LAMONT IQBAL MD [id number] DICTATION DATE: 04/22/171648 PROGRAM DIRECTOR SUBSTANCE ABUSE: 04/22/171926 DIS IN 04/24/17 [facility] [address] [place] [address]
== END 2017-04-24 20:53 | disposition home health service (06) | DRG 871 ==
LOC: D.ER 22:46 → OBSVTIME 04-20 00:48 → D.MS 04-20 00:48
PROVIDERS: Emergency Medicine; Internal Medicine Pulmonary Disease; Nurse Practitioner Family; ADMIT Legal Medicine
PROC: 0T9B70Z Drainage of Bladder with Drainage Device, Via Natural or Artificial Opening (ICD-10-PCS; principal; 2017-04-19)
DX: A41.9 Sepsis, unspecified organism (principal); J69.0 Pneumonitis due to inhalation of food and vomit; J96.01 Acute respiratory failure with hypoxia; E87.0 Hyperosmolality and hypernatremia; N17.9 Acute kidney failure, unspecified; J11.1 Influenza due to unidentified influenza virus with other respiratory manifestations; E11.40 Type 2 diabetes mellitus with diabetic neuropathy, unspecified; Z66 Do not resuscitate; J45.909 Unspecified asthma, uncomplicated; E86.0 Dehydration; I69.920 Aphasia following unspecified cerebrovascular disease; G40.909 Epilepsy, unspecified, not intractable, without status epilepticus; D64.9 Anemia, unspecified; D69.6 Thrombocytopenia, unspecified; I10 Essential (primary) hypertension; F20.9 Schizophrenia, unspecified; F41.9 Anxiety disorder, unspecified; F32.9 Major depressive disorder, single episode, unspecified